=== PATIENT | male | born 1990 | race Caucasian/White ===

== ENCOUNTER 2020-09-29 12:04 | Emergency (ER) | payer OTHER ==
--- NOTE | 2020-09-29 12:19 | ER Document Report ---
ED Medical Screen (RME) - General Chief Complaint: Testicular Swelling Stated Complaint: TESTICULAR SWELLING Time Seen by Provider: 09/29/20 12:07 Mode of Arrival: Ambulatory Information source: Patient Notes: 29-year-old male presented to ED for complaint of painful testicles mainly on the right. He states is a achy dull ache on the inside of the testicle started last night during the night woke him up and he had an appointment with [facility] but they told him they did not have proper equipment to test him so he came over here. His blood pressure is very elevated at this time. He states sometimes it is elevated when he first comes in by the end of the visit is back to normal his blood pressure right now is 195/121. I will get a clean and dirty urine blood and a ultrasound of the scrotum. I have greeted and performed a rapid initial assessment of this patient. A comprehensive ED assessment and evaluation of the patient, analysis of test results and completion of medical decision making process will be conducted by an additional ED providers. Physical Exam - Vital signs Vitals: Temp Pulse Resp BP Pulse Ox 98.0 F 83 16 195/121 H 97 09/29/20 12:12 09/29/20 12:12 09/29/20 12:12 09/29/20 12:12 09/29/20 12:12 Course - Vital Signs Vital signs: Temp Pulse Resp BP Pulse Ox 98.0 F 83 16 195/121 H 97 09/29/20 12:12 09/29/20 12:12 09/29/20 12:12 09/29/20 12:12 09/29/20 12:12
--- NOTE | 2020-09-29 13:00 | RADIOLOGY REPORT (SQ) ---
EXAM DESCRIPTION: U/S SCROTUM W/DOPPLER IMAGES COMPLETED DATE/TIME: 09/29/2020 12:41 pm REASON FOR STUDY: pain swelling COMPARISON: None. TECHNIQUE: Static and realtime alas scale imaging of the scrotum and testes. Selected color Doppler and spectral images recorded to document blood flow. LIMITATIONS: None. FINDINGS: RIGHT: TESTICLE: Normal size, 4.8 cm. Normal echotexture. Normal blood flow. No mass. EPIDIDYMIS: Normal. HYDROCELE OR VARICOCELE: Questionable small varicocele. HERNIA OR EXTRA-TESTICULAR MASS: No. OTHER: No other significant finding. LEFT: TESTICLE: Normal size, 3.8 cm. Normal echotexture. Normal blood flow. No mass. EPIDIDYMIS: Normal. HYDROCELE OR VARICOCELE: No. HERNIA OR EXTRA-TESTICULAR MASS: No. OTHER: No other significant finding. IMPRESSION: Possible small varicocele on the right. No other significant finding. TECHNICAL DOCUMENTATION: JOB ID: [id number] [employer]- All Rights Reserved Reading location - IP/workstation name: [email or web address]
[2020-09-29 13:26] LABS: APPEARANCE,URINE CLEAR; BILIRUBIN,URINE NEGATIVE (NEGATIVE); COLOR,URINE YELLOW; GLUCOSE, URINE NEGATIVE (NEGATIVE); KETONES,URINE NEGATIVE (NEGATIVE); LEUKOCYTE ESTERASE,URINE NEGATIVE (NEGATIVE); NITRITE,URINE NEGATIVE (NEGATIVE); PROTEIN,URINE NEGATIVE (NEGATIVE); URINE SPECIFIC GRAVITY 1.031; UROBILINOGEN,URINE NEGATIVE mg/dL (<2.0)
--- NOTE | 2020-09-29 13:34 | ER Document Report ---
ED GI/ - General Chief Complaint: Scrotal Pain, Acute Onset Stated Complaint: TESTICULAR SWELLING Time Seen by Provider: 09/29/20 12:07 Primary Care Provider: JOSE,SARAH [Primary Care Provider] - Follow up as needed Mode of Arrival: Ambulatory Notes: CHIEF COMPLAINT: Right testicular pain HPI: 29-year-old otherwise healthy male presenting with right testicular pain that began last night had difficulty getting comfortable last night. Denies flank or abdominal or pelvic pain. Denies dysuria or hematuria. States he does have a history of sciatic back pain but that discomfort normally goes around the leg. Denies rash. ROS: See HPI - all other systems were reviewed and are otherwise negative Constitutional: no fever GI: no vomiting, no diarrhea, no abdominal pain : no dysuria, positive testicular pain Integumentary: no rash Allergy: no hives Musculoskeletal: no extremity pain or swelling MEDICATIONS: I agree with the patient medications as charted by the RN. ALLERGIES: I agree with the allergies as charted by the RN. PAST MEDICAL HISTORY/PAST SURGICAL HISTORY: Reviewed and agree as charted by RN. SOCIAL HISTORY: Reviewed and agree as charted by RN. FAMILY HISTORY: No significant familial comorbid conditions directly related to patient complaint EXAM: Reviewed vital signs as charted by RN. CONSTITUTIONAL: Alert and oriented and responds appropriately to questions. Well-appearing; well-nourished HEAD: Normocephalic; atraumatic EYES: Conjunctivae clear, sclerae non-icteric ENT: normal nose; no rhinorrhea; moist mucous membranes NECK: Supple without meningismus CARD: symmetric distal pulses RESP: Normal chest excursion without splinting or tachypnea ABD/GI: Normal bowel sounds; non-distended; soft, non-tender, no rebound, no guarding; no palpable organomegaly or masses. : Circumcised male. Bilateral testicles are descended with very mild tenderness on the posterior epididymal aspect of the right testicle. Patient was examined in a standing position. No inguinal or scrotal hernias on exam. There is no visible rash. No visible urethral discharge. BACK: The back appears normal and is non-tender to palpation, there is no CVA tenderness EXT: Normal ROM in all joints; non-tender to palpation; no cyanosis, no effusions, no edema SKIN: Normal color for age and race; warm; dry; good turgor; no acute lesions noted NEURO: Moves all extremities equally; Motor and sensory function intact PSYCH: The patient's mood and manner are appropriate. Grooming and personal hygiene are appropriate. MDM: 29-year-old male with right testicular pain since last night. He has absolutely no flank or abdominal pain to suggest renal colic or kidney stone at this time. Ultrasound that was done via the triage process shows a small varicocele. Awaiting urinalysis but if no actionable abnormalities anticipate discharge home with pain management and urology follow-up - Related Data Allergies/Adverse Reactions: No Known Allergies Allergy (Unverified 09/29/20 12:53) Home Medications: Meloxicam. pantropozole. trazodone. Wellbutrin Past Medical History - General Information source: Patient - Social History Smoking Status: Never Smoker Chew tobacco use (# tins/day): No Frequency of alcohol use: Occasional Drug Abuse: None Family History: Reviewed & Not Pertinent Patient has homicidal ideation: No Psychiatric Medical History: Reports: Hx Depression Physical Exam - Vital signs Vitals: Temp Pulse Resp BP Pulse Ox 98.0 F 83 16 195/121 H 97 09/29/20 12:12 09/29/20 12:12 09/29/20 12:12 09/29/20 12:12 09/29/20 12:12 Course - Re-evaluation Re-evalutation: 09/29/20 13:49 Ultrasound shows a small varicocele urine is clean. I spoke with the patient at length about his results we will treat with Pierre, refer to urology. In discussion with the patient he states that his work is requesting that all employees get Covid testing before they go back he is completely asymptomatic. I discussed this with him as there are several places in town that he can get rapid tests and he states he called him and they could not get him in today he knows that he will be under quarantine for the next 2 to 3 days until he is a test result from here if he gets a Covid study but he is requesting that we do this today 09/29/20 14:02 Patient's blood pressure was noted to still be elevated, I spoke with him at length about this. He states when he goes to the [place] his pressure normally starts at high but by the end of his visit it is normal. 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 We will not start patient on medications at this time - Vital Signs Vital signs: Temp Pulse Resp BP Pulse Ox 98.0 F 83 16 195/121 H 97 09/29/20 12:12 09/29/20 12:12 09/29/20 12:12 09/29/20 12:12 09/29/20 12:12 Discharge - Discharge Clinical Impression: Testicular pain, right, Person under investigation for COVID-19, Elevated blood pressure reading Condition: Stable Disposition: HOME, SELF-CARE Instructions: COVID-19 Guidance for Persons Under Investigation, Testicular Pain ([facility]) Additional Instructions: Take the Voltaren consistently for the testicular pain. Follow-up with urology for further evaluation and treatment call for appointment. It was noted that your blood pressure was elevated today make sure that you are monitoring this at home as discussed and [facility] continue to be elevated. You are considered a person under investigation for COVID-19 at this time pending her results which may take 2 to 5 days. Self quarantine at home pending the results Prescriptions: Diclofenac Sodium [Voltaren 50 Mg Tablet.] 50 mg PO BID #20 tablet. [facility] [[facility] - Follow up as needed DELIO PEREZ MD [NO LOCAL MD] - Follow up as needed
[2020-09-29 13:58] VITALS: BP 178/113
[2020-09-29 14:57] LABS: CHLAM PCR NOT DETECTED (NOT DETECT)
== END 2020-09-29 14:25 | disposition home or self-care (01) ==
LOC: ER 12:04
DX: I86.1 Scrotal varices (principal); N50.811 Right testicular pain; I10 Essential (primary) hypertension; F32.9 Major depressive disorder, single episode, unspecified; Z79.899 Other long term (current) drug therapy; Z79.1 Long term (current) use of non-steroidal anti-inflammatories (NSAID); Z20.828 Contact with and (suspected) exposure to other viral communicable diseases
CPT/HCPCS: 99284; 87086; 87635; 81001; 87491; 87591; 76870; 93976; C9803